=== PATIENT | female | born 1975 | race Caucasian/White ===

== ENCOUNTER 2016-11-01 14:01 | Emergency (ER) | payer MEDICAID ==
[~2016-11-01] VITALS: Ht 160 cm; Wt 93.0 kg
[~2016-11-01 14:01] MED LIST: PREN-385 PO
[2016-11-01 14:06] VITALS: BP 128/74
--- NOTE | 2016-11-01 15:15 | NUR ---
Patient ambulated to bed 5. RN evaluating patient at bedside.
[2016-11-01] MEDS ORDERED: KETOROLAC 60 MG/2 ML VIAL IM ONE (15:25)
--- NOTE | 2016-11-01 16:00 | NUR ---
Patient discharged with v/s stable. Written and verbal after care instructions given and explained. Patient alert, oriented and verbalized understanding of instructions. Ambulatory with steady gait. All questions addressed prior to discharge. ID band removed. Patient advised to follow up with PMD. Rx of DICLOFENAC & CYCLONENZAPINE HCL given. Patient educated on indication of medication including possible reaction and side effects. Opportunity to ask questions provided and answered.
[2016-11-01 16:02] VITALS: BP 128/74
== END 2016-11-01 16:00 | disposition home or self-care (01) ==
LOC: MED 14:01
DX: S39.012A Strain of muscle, fascia and tendon of lower back, initial encounter (principal); I10 Essential (primary) hypertension; X58.XXXA Exposure to other specified factors, initial encounter; Y93.89 Activity, other specified; Y92.89 Other specified places as the place of occurrence of the external cause; Y99.8 Other external cause status
CPT/HCPCS: 81002; 81025; 96372; 99283; J1885

== ENCOUNTER 2018-02-04 10:09 | Emergency (ER) | payer SELFPAY ==
[~2018-02-04] VITALS: Ht 167.6 cm; Wt 83.9 kg
[2018-02-04 10:20] VITALS: BP 132/87
[2018-02-04 12:12] VITALS: BP 132/87
== END 2018-02-04 12:10 | disposition home or self-care (01) ==
LOC: MED 10:09
DX: J06.9 Acute upper respiratory infection, unspecified (principal); I10 Essential (primary) hypertension; Z79.899 Other long term (current) drug therapy
CPT/HCPCS: 36415; 87804; 99283

== ENCOUNTER 2022-02-23 17:16 | Emergency (ER) | payer MEDICAID ==
[~2022-02-23] VITALS: Ht 160 cm; Wt 83.9 kg
--- NOTE | 2022-02-23 17:57 | NUR ---
COVID, FLU SWABS DONE.
[2022-02-23 18:04] VITALS: BP 116/73
[2022-02-23] MEDS ORDERED: IBUP-2218 PO (19:51)
[2022-02-23] MEDS ORDERED: ALBU0.0912 IH (19:51)
[2022-02-23] MEDS ORDERED: NIRM1TAB PO (19:51)
[2022-02-23] MEDS ORDERED: PROM118S5 PO (19:51)
--- NOTE | 2022-02-23 20:12 | NUR ---
Patient discharged with v/s stable. Written and verbal after care instructions given and explained. Patient verbalized understanding. Ambulatory with steady gait. All questions addressed prior to discharge. Advised to follow up with PMD.
== END 2022-02-23 20:12 | disposition home or self-care (01) ==
LOC: MED 17:16
DX: U07.1 COVID-19 (principal); B34.9 Viral infection, unspecified; I10 Essential (primary) hypertension; Z79.899 Other long term (current) drug therapy
CPT/HCPCS: 99283

== ENCOUNTER 2023-01-15 10:54 | Emergency (ER) | payer MEDICAID, OTHER ==
[~2023-01-15] VITALS: Ht 160 cm; Wt 89.4 kg
[~2023-01-15 10:54] MED LIST changes: +ALBU0.0912 IH; +IBUP-2218 PO; +NIRM1TAB PO; +PROM118S5 PO
[2023-01-15 11:01] VITALS: BP 129/81; PULSE 73; RESP 16; TEMP 97.8; O2SAT 99
[2023-01-15 11:26] LABS: APPEARANCE,URINE CLEAR (CLEAR); BILIRUBIN,URINE NEGATIVE (NEGATIVE); BLOOD, URINE NEGATIVE (NEGATIVE); COLOR,URINE YELLOW (YELLOW); LEUKOCYTE ESTERASE ,URINE NEGATIVE (NEGATIVE); NITRITE, URINE NEGATIVE (NEGATIVE); PROTEIN,URINE NEGATIVE (NEGATIVE); UGLUCOSE NEGATIVE (NEGATIVE); UROBILINOGEN,URINE 0.2 EU/dL (0.2 - 1)
[2023-01-15] MEDS ORDERED: KETOROLAC 60 MG/2 ML VIAL IM ONE (11:55)
[2023-01-15] MEDS ORDERED: IBUP-2213 PO (12:46)
[2023-01-15 13:01] VITALS: BP 129/81; PULSE 73; RESP 16; TEMP 97.8; O2SAT 99
== END 2023-01-15 13:01 | disposition home or self-care (01) ==
LOC: MED 10:54
DX: R19.7 Diarrhea, unspecified (principal); R10.13 Epigastric pain; Z79.899 Other long term (current) drug therapy; Z79.1 Long term (current) use of non-steroidal anti-inflammatories (NSAID)
CPT/HCPCS: 81003; 81025; 96372; 99283; J1885

== ENCOUNTER 2023-05-03 17:55 | Emergency (ER) | payer OTHER ==
[~2023-05-03] VITALS: Ht 160 cm; Wt 86.2 kg
[~2023-05-03 17:55] MED LIST changes: +IBUP-2213 PO
[2023-05-03 18:12] VITALS: BP 118/78; PULSE 84; RESP 20; TEMP 98.2; O2SAT 100
[2023-05-03] MEDS ORDERED: IBUP-2213 PO (22:09)
[2023-05-03 22:24] VITALS: BP 118/78; PULSE 84; RESP 20; TEMP 98.2; O2SAT 100
[2023-05-03] MEDS: KETOROLAC 30 MG/ML VIAL IM ONE (22:24)
== END 2023-05-03 22:20 | disposition home or self-care (01) ==
LOC: MED 17:55
DX: S40.012A Contusion of left shoulder, initial encounter (principal); S30.811A Abrasion of abdominal wall, initial encounter; S90.811A Abrasion, right foot, initial encounter; Z79.899 Other long term (current) drug therapy; R51.9 Headache, unspecified; V43.52XA Car driver injured in collision with other type car in traffic accident, initial encounter; Y93.89 Activity, other specified; Y92.410 Unspecified street and highway as the place of occurrence of the external cause; Y99.8 Other external cause status
CPT/HCPCS: 71045; 81025; 93005; 96372; 99283; J1885